=== PATIENT | female | born 1965 | race Caucasian/White ===

== ENCOUNTER 2016-09-18 15:47 | Emergency (ER) | payer OTHER ==
[~2016-09-18] VITALS: Ht 160 cm; Wt 129.5 kg
[~2016-09-18 15:47] MED LIST: ANTIVERT25 MG PO; ATARAX,VISTARIL25 MG; ATARAX,VISTARIL25 MG PO; BACTRIM,SEPT1 TABLET; BUSPIRONE HCL10 MG PO; CELEXA20 MG PO; CLEOCIN300 MG PO; CLINDAMYCIN HC300 MG PO; DEPAKOTE ER500 MG PO; FLEXERIL10 MG PO; FLEXERIL5 MG PO; FUROSEMIDE20 MG PO; GABAPENTIN300 MG PO; HYDROCHLOROTH12.5 M1 PO; HYDROXYZINE PAM25 MG PO; K-DUR20 MEQ PO; KEFLEX500 MG PO; LAMICTAL25 MG PO; LASIX40 MG PO; LEXAPRO20 MG PO; LYRICA25 MG PO; MELOXICAM7.5 MG PO; MOTRIN800 MG PO; NIX 5% CREAM60 GM TP; PERCOCET 5/31 TABLET PO; PREDNISONE10 MG; PREDNISONE20 MG PO; RANITIDINE HCL150 MG PO; SEROQUEL100 MG PO; SEROQUEL12.5 MG PO; TOPIRAMATE50 MG PO; TRAMADOL HCL50 MG PO; TRAZODONE HCL50 MG PO; TYLENOL WITH C1 EACH PO; VIBRAMYCIN100 MG PO; VITAMIN D10000 UNIT PO; VITAMIN D250000 UNIT PO; VITAMIN D50000 UNI1 PO; ZANTAC150 MG PO
[2016-09-18] MEDS ORDERED: PERCOCET 5/31 TABLET PO (16:19)
[2016-09-18] MEDS ORDERED: PREDNISONE50 MG PO (16:19)
[2016-09-18 16:56] VITALS: BP 116/73
== END 2016-09-18 16:57 | disposition home or self-care (01) ==
LOC: EME 15:47
DX: G89.29 Other chronic pain (principal); M54.5 Low back pain; Z88.2 Allergy status to sulfonamides; Z91.013 Allergy to seafood; Z88.0 Allergy status to penicillin; F17.200 Nicotine dependence, unspecified, uncomplicated
CPT/HCPCS: 99281; 99284

== ENCOUNTER 2016-12-29 20:31 | Emergency (ER) | payer OTHER ==
[~2016-12-29] VITALS: Ht 160 cm; Wt 129.2 kg
[~2016-12-29 20:31] MED LIST changes: +PREDNISONE50 MG PO
[2016-12-29 22:20] LABS: ADD MIUA? NO; BILIRUBIN NEGATIVE; BLOOD NEGATIVE; COLOR YELLOW ((YELLOW)); GLUCOSE (STRIP) NEGATIVE; KETONES NEGATIVE; LEUKOCYTES NEGATIVE; NITRITE NEGATIVE; PROTEIN (STRIP) NEGATIVE; SPECIFIC GRAVITY 1.008 (1.000-1.030); UROBILINOGEN 0.2 MG/DL (0.2-1.0)
[2016-12-29] MEDS ORDERED: LEVAQUIN500 MG PO (23:12)
[2016-12-29] MEDS ORDERED: FLONASE16 G1 BOTH NARES (23:12)
[2016-12-29] MEDS ORDERED: PREDNISONE20 MG PO (23:12)
[2016-12-29] MEDS ORDERED: MUCINEX D ER T1 EACH PO (23:12)
[2016-12-29 23:35] VITALS: BP 138/72
== END 2016-12-29 23:40 | disposition home or self-care (01) ==
LOC: EME 20:31
PROVIDERS: Physician Assistant
DX: J32.9 Chronic sinusitis, unspecified (principal); N39.3 Stress incontinence (female) (male); Z86.73 Personal history of transient ischemic attack (TIA), and cerebral infarction without residual deficits; K21.9 Gastro-esophageal reflux disease without esophagitis; J45.909 Unspecified asthma, uncomplicated; E66.9 Obesity, unspecified; Z68.43 Body mass index [BMI] 50.0-59.9, adult; Z87.891 Personal history of nicotine dependence
CPT/HCPCS: 81003; 99281; 99284; J7512

== ENCOUNTER 2017-05-06 14:22 | Emergency (ER) | payer OTHER ==
[~2017-05-06] VITALS: Ht 160 cm; Wt 128.0 kg
[~2017-05-06 14:22] MED LIST changes: +FLONASE16 G1 BOTH NARES; +LEVAQUIN500 MG PO; +MUCINEX D ER T1 EACH PO
[2017-05-06 15:20] LABS: MCH 27.3 PG (29.0-34.0); MCHC 33.3 G/DL (30.0-36.0); PLATELET COUNT 361 K/uL (156-360); RBC DIS.WIDTH-CV 13.2 % (11.8-14.6); RBC DIS.WIDTH-SD 39.3 % (39-53); RED BLOOD COUNT 5.12 M/uL (3.80-5.20); WHITE BLOOD COUNT 7.8 K/uL (4.1-10.2)
[2017-05-06 15:30] LABS: ALBUMIN 3.8 g/dL (3.2-4.8); CHLORIDE 107 mEq/L (99-109); POTASSIUM 3.9 mEq/L (3.7-5.4); SODIUM 138 mEq/L (136-147)
[2017-05-06 15:33] LABS: GLUCOSE 89 mg/dL (70-99); TOTAL PROTEIN 7.2 g/dL (6.4-8.3)
[2017-05-06 15:35] LABS: TOTAL BILIRUBIN 0.5 mg/dL (0.0-1.0)
[2017-05-06 15:36] LABS: ALKALINE PHOSPHATASE 71 IU/L (3-129); CREATININE 0.8 mg/dL (0.6-1.3); GFR ESTIMATE (CALCULATED) > 59 mL/min/
[2017-05-06 15:37] LABS: UREA NITROGEN (BUN) 11 mg/dL (9-23)
[2017-05-06 15:38] LABS: AST (GOT) 21 IU/L (2-34)
[2017-05-06 15:39] LABS: ALT (GPT) 19 IU/L (3-49)
[2017-05-06 15:40] LABS: LIPASE 20 U/L (1.0-51.0)
[2017-05-06 15:45] LABS: QUANTITATIVE HCG < 4.0 MIU/ML
[2017-05-06 17:43] LABS: APPEARANCE SL.HAZY ((CLEAR)); BILIRUBIN NEGATIVE; BLOOD LARGE; COLOR YELLOW ((YELLOW)); GLUCOSE (STRIP) NEGATIVE; KETONES 20; LEUKOCYTES NEGATIVE; NITRITE NEGATIVE; PROTEIN (STRIP) NEGATIVE; SPECIFIC GRAVITY 1.016 (1.000-1.030); UROBILINOGEN 0.2 MG/DL (0.2-1.0)
[2017-05-06 17:51] LABS: BACTERIA NONE SEEN /HPF; EPITHELIAL CELLS RARE /HPF; MUCUS TRACE /LPF; RED BLOOD CELLS TNTC /HPF (0-5); UCUL ADDED? YES; WHITE BLOOD CELLS 0-5 /HPF (0-5)
[2017-05-06 20:39] VITALS: BP 129/100
== END 2017-05-06 20:40 | disposition home or self-care (01) ==
LOC: EME 14:22
DX: R10.2 Pelvic and perineal pain (principal); R19.09 Other intra-abdominal and pelvic swelling, mass and lump; R42 Dizziness and giddiness; R11.0 Nausea; D25.9 Leiomyoma of uterus, unspecified; E66.9 Obesity, unspecified; Z68.43 Body mass index [BMI] 50.0-59.9, adult; Z90.49 Acquired absence of other specified parts of digestive tract
CPT/HCPCS: 74177; 76856; 80053; 81003; 83690; 84702; 85027; 87086; 99281; 99284; J7030

== ENCOUNTER 2017-07-01 07:58 | Day surgery (SDC) | payer OTHER ==
[~2017-07-01] VITALS: Ht 161.3 cm; Wt 117.9 kg
[~2017-07-01 07:58] MED LIST changes: +LOVENOX40 MG/0.4 SC; +PRAZOSIN HCL1 MG PO
[2017-07-02] MEDS ORDERED: HYDROXYZINE HCL25 MG PO (10:00)
[2017-07-02] MEDS ORDERED: HYDROCODON-ACE1 EAC7 PO (10:01)
[2017-07-02] MEDS ORDERED: COMPAZINE5 MG PO (10:01)
[2017-07-02] MEDS ORDERED: ZUPLENZ4 MG PO (10:01)
[2017-07-02] MEDS ORDERED: PREDNISONE50 MG PO (10:02)
== END 2017-07-01 11:50 | disposition home or self-care (01) ==
LOC: CATH 07:58
DX: I87.8 Other specified disorders of veins (principal); C85.90 Non-Hodgkin lymphoma, unspecified, unspecified site; G40.909 Epilepsy, unspecified, not intractable, without status epilepticus; M19.90 Unspecified osteoarthritis, unspecified site; F32.9 Major depressive disorder, single episode, unspecified; F41.9 Anxiety disorder, unspecified; L30.9 Dermatitis, unspecified; Z90.49 Acquired absence of other specified parts of digestive tract; Z90.79 Acquired absence of other genital organ(s)
CPT/HCPCS: C1751; C1894; J1200; J1644; J2250; J3010; S0020